=== PATIENT | female | born 2000 | race Hispanic/Latino ===

== ENCOUNTER 2022-07-02 01:11 | Emergency (ER) | payer OTHER ==
[~2022-07-02] VITALS: Ht 162.6 cm; Wt 57.6 kg
[2022-07-02] MEDS ORDERED: FAMOTIDINE 20 MG/2 ML VIAL IV ONE ×2 (01:45→02:16)
[2022-07-02] MEDS ORDERED: SODIUM CHLORIDE 0.9% 1000ML 1,000 ML IV STA (01:45)
[2022-07-02] MEDS ORDERED: ONDANSETRON HCL INJ 2MG/ML 2ML 2 MG/ML VIAL IV ONE (01:45)
[2022-07-02] MEDS ORDERED: ACETAMINOPHEN 325 MG TAB PO ONE (01:45)
[2022-07-02] MEDS ORDERED: KETOROLAC TROMETHAMINE 30 MG/ML VIAL IV ONE (02:00)
[2022-07-02] MEDS ORDERED: ONDANSETRON HCL INJ 2MG/ML 2ML 2 MG/ML VIAL ONE ×2 (02:16)
[2022-07-02] MEDS ORDERED: ACETAMINOPHEN 325 MG TAB ONE (02:16)
[2022-07-02] MEDS ORDERED: KETOROLAC TROMETHAMINE 30 MG/ML VIAL ONE (02:16)
[2022-07-02] MEDS ORDERED: SODIUM CHLORIDE 0.9% 1000ML 1,000 ML ONE (02:16)
[2022-07-02] MEDS ORDERED: CEFTRIAXONE 1 GM VIAL IV ONE (03:15)
[2022-07-02] MEDS ORDERED: ACETAMINOPHEN500 MG PO (03:20)
[2022-07-02] MEDS ORDERED: FAMOTIDINE20 MG PO (03:20)
[2022-07-02] MEDS ORDERED: ONDANSETRON ODT4 MG PO (03:20)
[2022-07-02] MEDS ORDERED: CEFTRIAXONE 1 GM VIAL ONE (03:34)
[2022-07-02] MEDS ORDERED: SODIUM CHLORIDE 0.9% 100 ML ONE (03:34)
== END 2022-07-02 04:15 | disposition home or self-care (01) ==
LOC: FSED 01:26
DX: A08.4 Viral intestinal infection, unspecified (principal); Z88.5 Allergy status to narcotic agent
CPT/HCPCS: 80053; 81003; 81025; 83518; 85025; 87400; 99283; J0696; J1885; J2405; J7030; J7050